=== PATIENT | female | born 1960 | race Caucasian/White ===

== ENCOUNTER 2018-05-31 07:16 | Emergency (ER) | payer OTHER ==
[2018-05-31] MEDS ORDERED: VITAMIN B-1 100 MG PO ONE (07:25)
--- NOTE | 2018-05-31 07:37 | ERPHSYRPT ---
- History of Present Illness Time Seen by Provider: 05/31/18 07:25 Source: patient, EMS Exam Limitations: no limitations Physician History: patient brought in by EMS after responding to a call from an upset patietn throwing things; on arrival found a depressed female upset over the passing of her of 27 years about a month ago; daughter was at scene but patietn lives alone, now depressed; not eating well- lost 15 pounds in past month; no pains; BMs wnl; voiding ok without symptoms;no ARZATE or CP other then from a broken heart; not sleeping well; denies suicidal or homicidal plans and or thoughts; no prior hx; no trouble breathing; has not sought medical help coping ; "doesn't want help coping"; denies any recent alcohol or drug use; no other complaints at this time. Cooperative but cries easily,. FSBS by EMS ok at 160; will order a 1800 linda ADA BF and recheck glucose after; she can't recall if she took her meds this am or not; will rquest Psyche consult from for follow up and check basic labs, monitor and recheck; accu check here before BF was 126; BP slightly elevated and not sure if took am meds; will monitor and recheck and give meds if still elevated Timing/Duration: today (uppset this am and acting out at home), week(s) (3-4 depressed over loss of ) Severity of Symptoms-Max: severe Severity of Symptoms-Current: moderate Context related to: spouse (loss of after 27 years), daughter (at house - upset) , recent (of spouse of 27 years) Associated Symptoms: depressed, No hallucinating, No ingestion, No injury, No paranoid, No suicidal ideation Previous symptoms: no prior history Allergies/Adverse Reactions: No Known Drug Allergies Allergy (Unverified 05/31/18 07:36) Home Medications: Atorvastatin Calcium 80 mg PO DAILY 05/31/18 [History] Clopidogrel Bisulfate [Clopidogrel] 75 mg PO DAILY 05/31/18 [History] Gabapentin 600 mg PO DAILY 05/31/18 [History] Insulin Degludec [Tresiba Flextouch U-100] 1 units IM DAILY 05/31/18 [History] Losartan Potassium 100 mg PO DAILY 05/31/18 [History] Nifedipine [Procardia Xl] 60 mg PO DAILY 05/31/18 [History] - Past Medical History Pertinent Past Medical History: Yes Cardiac History: Hypertension Endocrine Medical History: Diabetes Type I - Past Surgical History Gastrointestinal: Cholecystectomy Female Surgical History: Section (x3) - Social History Smoking Status: Current every day smoker (1ppd) Exposure to second hand smoke: No Alcohol Use: None Drug Use: none Patient Lives Alone: Yes Significant Family History: diabetes, hypertension - Female History Hx Now: No - Review of Systems Constitutional: Weight Loss (15#s over past month), No Fever, No Chills, No Night Sweats Eyes: No Symptoms Ears, Nose, & Throat: No Symptoms Respiratory: No Cough, No Dyspnea, No Wheezing Cardiac: No Chest Pain, No Edema, No Palpitations, No Syncope Abdominal/Gastrointestinal: No Abdominal Pain, No Nausea, No Vomiting, No Diarrhea, No Hematemesis, No Melena Genitourinary Symptoms: No Symptoms Musculoskeletal: No Symptoms Skin: No Symptoms Neurological: No Symptoms Psychological: Depression, Hallucinations (questionable saw her recently ( possible dream this am)), No Alcohol Abuse, No Drug Abuse, No Anxiety, No Suicidal Ideations, No Homicidal Ideations, No Memory Loss Endocrine: Cold Intolerance, No Polyuria, No Polydipsia, No Excessive Sweating, No Goiter Hematologic/Lymphatic: No Symptoms Immunological/Allergic: No Symptoms - Nursing Vital Signs Nursing Vital Signs: Initial Vital Signs Temperature 97.6 F 05/31/18 07:18 Pulse Rate 82 05/31/18 07:18 Respiratory Rate 18 05/31/18 07:18 Blood Pressure 152/100 05/31/18 07:18 O2 Sat by Pulse Oximetry 99 05/31/18 07:18 Pain Scale Pain Intensity 0 - Physical Exam General Appearance: mild distress, thin, other (depressed - cries easily ) Eyes, Ears, Nose, Throat Exam: normal ENT inspection, TMs normal, pharynx normal , moist mucous membranes Neck Exam: normal inspection, non-tender, supple, full range of motion, No meningismus, No JVD Respiratory Exam: normal breath sounds, lungs clear, airway intact, No chest tenderness, No respiratory distress, No crackles/rales, No rhonchi, No wheezing Cardiovascular Exam: regular rate/rhythm, normal heart sounds, normal peripheral pulses, capillary refill <2 sec, No murmur Gastrointestinal/Abdominal Exam: soft, normal bowel sounds, No tenderness, No guarding, No rebound, No organomegaly Extremities Exam: normal inspection, normal range of motion, No evidence of injury, No edema Peripheral Pulses: carotid (R): 4+, carotid (L): 4+, femoral (R): 4+, femoral (L ): 4+, dorsalis-pedis (R): 3+, dorsalis-pedis (L): 3+ Current Suicidality: denies suicide plan, No has suicide plan Neurological Exam: alert, calm, dispatch manager II-XII nml as tested, oriented x 3, No normal mood/affect (cries easily when discussing recent of her ) Appearance: appropriate appearance, appropriate insight, neat, no memory impairment, denies illness, No impaired insight, No impaired recent memory, No impaired remote memory Behavior/Eye Contact/Speech: alert & cooperative, cooperative, normal speech, No good eye contact Thoughts/Hallucinations: normal thought pattern, no apparent hallucination, No delusions, No flight of ideas, No paranoid Skin Exam: normal color, warm, dry, No rash, No petechiae, No cyanosis SpO2 Interpretation: normal SpO2: 99 Oxygen Delivery: Room Air - Course Nursing assessment & vital signs reviewed: Yes - Radiology Exams Chest X-ray Interpretation: Reviewed by me, Teleradiologist Report, Infiltrates (left basilar vs atelectasis) - CT Exams Head CT Interpretation: Tele-radiologist Report, Other (NAD; several areas of encephalomalacia - old) Ordered Tests: Active Orders 24 hr Category Date Time Status Accucheck STAT Care 05/31/18 07:25 Active Other ED Treatment STAT Care 05/31/18 07:29 Active Re-Check Vital Signs STAT Care 05/31/18 07:25 Active Psychiatric Consult STAT Cons 05/31/18 07:25 Active CHEST 1 VIEW (PORTABLE) Stat Exams 05/31/18 08:34 Completed HEAD WITHOUT CONTRAST [CT] Stat Exams 05/31/18 13:17 Completed ACETAMINOPHEN Stat Lab 05/31/18 07:45 Completed BLOOD CULTURE Stat Lab 05/31/18 09:17 Received CBC W DIFF Stat Lab 05/31/18 07:45 Completed CMP Stat Lab 05/31/18 07:45 Completed ETHYL ALCOHOL Stat Lab 05/31/18 07:45 Completed SALICYLATE Stat Lab 05/31/18 07:45 Completed UA W/RFX UR CULTURE Stat Lab 05/31/18 07:45 Completed Urine Triage Profile Stat Lab 05/31/18 07:45 Completed Medication Summary Generic Name Dose Route Start Last Admin Trade Name Taina PRN Reason Stop Dose Admin Sodium Chloride 1,000 mls @ 100 mls/hr 05/31/18 09:45 05/31/18 09:45 Sodium Chloride 0.9% 1000 Ml IV 06/30/18 09:44 100 mls/hr .Q10H MONIQUE Administration Discontinued Medications Generic Name Dose Route Start Last Admin Trade Name Taina PRN Reason Stop Dose Admin Hydrocodone Bitart/Acetaminophen 1 tab 05/31/18 08:21 05/31/18 08:34 Harper 5/325 Mg PO 05/31/18 08:22 1 tab STAT ONE Administration Hydrocodone Bitart/Acetaminophen Confirm 05/31/18 08:33 Harper 5/325 Mg Administered 05/31/18 08:34 Dose 1 tab .ROUTE .STK-MED ONE Ceftriaxone Sodium/Dextrose 1 g in 50 mls @ 100 mls/hr 05/31/18 09:31 10:23 Rocephin 1 Gm-D5w 50 Ml Bag IV 05/31/18 10:00 Infused STAT STA Infusion Ceftriaxone Sodium/Dextrose Confirm 05/31/18 09:44 Rocephin 1 Gm-D5w 50 Ml Bag Administered 05/31/18 09:45 Dose 1 g in 50 mls @ ud IV .STK-MED ONE Lorazepam 2 mg 05/31/18 12:11 05/31/18 12:18 Ativan 1 Mg PO 05/31/18 12:12 2 mg STAT ONE Administration Lorazepam Confirm 05/31/18 12:16 Ativan 1 Mg Administered 05/31/18 12:17 Dose 2 mg .ROUTE .STK-MED ONE Olanzapine 10 mg 05/31/18 13:19 05/31/18 13:23 Zyprexa Zydis 5 Mg PO 05/31/18 13:20 10 mg STAT ONE Administration Olanzapine Confirm 05/31/18 13:19 Zyprexa Zydis 5 Mg Administered 05/31/18 13:20 Dose 10 mg PO .STK-MED ONE Thiamine HCl 100 mg 05/31/18 07:25 05/31/18 08:02 Vitamin B-1 100 Mg PO 05/31/18 07:26 100 mg STAT ONE Administration Lab/Rad Data: Laboratory Result Diagrams 05/31/18 07:45 05/31/18 07:45 Laboratory Results 05/31/18 05/31/18 05/31/18 Range/Units 07:45 07:45 07:45 WBC (4.0-10.5) K/mm3 RBC (4.1-5.4) M/mm3 Hgb (12.0-16.0) gm/dl Hct (35-47) % MCV (78-100) fl MCH (26-32) pg MCHC (32-36) g/dl RDW (11.5-14.0) % Plt Count (150-450) K/mm3 MPV (6-9.5) fl Gran % (36.0-66.0) % Eos # (Auto) (0-0.5) Absolute Lymphs (auto) (1.0-4.6) Absolute Monos (auto) (0.0-1.3) Lymphocytes % (24.0-44.0) % Monocytes % (0.0-12.0) % Eosinophils % (0.00-5.0) % Basophils % (0.0-0.4) % Absolute Granulocytes (1.4-6.9) Basophils # (0-0.4) Sodium 137 (137-145) mmol/L Potassium 3.5 (3.5-5.1) mmol/L Chloride 101 (98-107) mmol/L Carbon Dioxide 28 (22-30) mmol/L Anion Gap 11.3 (5-15) MEQ/L BUN 10 (7-17) mg/dL Creatinine 0.60 (0.52-1.04) mg/dL Estimated GFR > 60.0 ML/MIN Glucose 133 H (74-106) mg/dL Calcium 8.9 (8.4-10.2) mg/dL Total Bilirubin 0.70 (0.2-1.3) mg/dL AST 21 (14-36) U/L ALT 14 (0-35) U/L Alkaline Phosphatase 211 H (38-126) U/L Serum Total Protein 6.4 (6.3-8.2) g/dL Albumin 3.6 (3.5-5.0) g/dL Urine Color YELLOW (YELLOW) Urine Appearance SLIGHTLY CLOUDY (CLEAR) Urine pH 5.0 (5-6) Ur Specific [place] 1.014 (1.005-1.025) Urine Protein NEGATIVE (Negative) Urine Ketones SMALL (NEGATIVE) Urine Blood NEGATIVE (0-5) Salas/ul Urine Nitrite NEGATIVE (NEGATIVE) Urine Bilirubin NEGATIVE (NEGATIVE) Urine Urobilinogen 2 (0-1) mg/dL Ur Leukocyte Esterase NEGATIVE (NEGATIVE) Urine WBC (Auto) 0-2 (0-5) /HPF Urine RBC (Auto) 3-5 (0-2) /HPF U Epithel Cells (Auto) RARE (FEW) /HPF Urine Bacteria (Auto) RARE (NEGATIVE) /HPF Urine Mucus (Auto) SLIGHT (NEGATIVE) /HPF Urine Culture Reflexed NO (NO) Urine Glucose 150 (NEGATIVE) mg/dL Salicylates < 1.0 L (2-20) mg/dL Urine Opiates Level POSITIVE (NEGATIVE) Ur Methadone NEGATIVE (NEGATIVE) Acetaminophen 14 (10-30) ug/ml Urine Barbiturates NEGATIVE (NEGATIVE) Ur Phencyclidine (PCP) NEGATIVE (NEGATIVE) Urine Amphetamine POSITIVE (NEGATIVE) U Benzodiazepine Level POSITIVE (NEGATIVE) Urine Cocaine NEGATIVE (NEGATIVE) Urine Marijuana (THC) NEGATIVE (NEGATIVE) Ethyl Alcohol < 10 (0-10) mg/dL 05/31/18 Range/Units 07:45 WBC 6.2 (4.0-10.5) K/mm3 RBC 4.66 (4.1-5.4) M/mm3 Hgb 14.2 (12.0-16.0) gm/dl Hct 41.6 (35-47) % MCV 89.3 (78-100) fl MCH 30.5 (26-32) pg MCHC 34.1 (32-36) g/dl RDW 14.0 (11.5-14.0) % Plt Count 242 (150-450) K/mm3 MPV 9.1 (6-9.5) fl Gran % 41.8 (36.0-66.0) % Eos # (Auto) 0.23 (0-0.5) Absolute Lymphs (auto) 2.84 (1.0-4.6) Absolute Monos (auto) 0.51 (0.0-1.3) Lymphocytes % 46.0 H (24.0-44.0) % Monocytes % 8.3 (0.0-12.0) % Eosinophils % 3.7 (0.00-5.0) % Basophils % 0.2 (0.0-0.4) % Absolute Granulocytes 2.59 (1.4-6.9) Basophils # 0.01 (0-0.4) Sodium (137-145) mmol/L Potassium (3.5-5.1) mmol/L Chloride (98-107) mmol/L Carbon Dioxide (22-30) mmol/L Anion Gap (5-15) MEQ/L BUN (7-17) mg/dL Creatinine (0.52-1.04) mg/dL Estimated GFR ML/MIN Glucose (74-106) mg/dL Calcium (8.4-10.2) mg/dL Total Bilirubin (0.2-1.3) mg/dL AST (14-36) U/L ALT (0-35) U/L Alkaline Phosphatase (38-126) U/L Serum Total Protein (6.3-8.2) g/dL Albumin (3.5-5.0) g/dL Urine Color (YELLOW) Urine Appearance (CLEAR) Urine pH (5-6) Ur Specific [place] (1.005-1.025) Urine Protein (Negative) Urine Ketones (NEGATIVE) Urine Blood (0-5) Salas/ul Urine Nitrite (NEGATIVE) Urine Bilirubin (NEGATIVE) Urine Urobilinogen (0-1) mg/dL Ur Leukocyte Esterase (NEGATIVE) Urine WBC (Auto) (0-5) /HPF Urine RBC (Auto) (0-2) /HPF U Epithel Cells (Auto) (FEW) /HPF Urine Bacteria (Auto) (NEGATIVE) /HPF Urine Mucus (Auto) (NEGATIVE) /HPF Urine Culture Reflexed (NO) Urine Glucose (NEGATIVE) mg/dL Salicylates (2-20) mg/dL Urine Opiates Level (NEGATIVE) Ur Methadone (NEGATIVE) Acetaminophen (10-30) ug/ml Urine Barbiturates (NEGATIVE) Ur Phencyclidine (PCP) (NEGATIVE) Urine Amphetamine (NEGATIVE) U Benzodiazepine Level (NEGATIVE) Urine Cocaine (NEGATIVE) Urine Marijuana (THC) (NEGATIVE) Ethyl Alcohol (0-10) mg/dL reviewed - Progress Progress: improved, re-examined (after respit) Progress Note: 05/31/18 07:51 will check basic labs; offer breakfast; monitor BP and recheck; get Psyche consult for follow up; FSBS here before BF was 126; will recheck after BF; labs pending 05/31/18 07:59 u/a shows slight cloudy; ph 5; yellow; sp gr 1.014; glu = 150; small ket; otherwise negative; CBC wnl; plt ok; patient ate part of BF and cooperative; BP still elevated - will give am meds and monitor and recheck; wants to smoke 05/31/18 08:22 patient complaining of low back pain- chronic condition; hasn't taken her Harper for back pain this am; will give her one; patient also now having visual hallucination - thinks her daughter is in the room, but won't talk to her and that upsets her. Some labs pending. Will monitor and Psyche consult pending. 05/31/18 08:35 now has a cough denied before; pleuritic CP on left when coughs- non-productive ; no hemoptosis or SOB; Sats are good; no travel; no exposures; will get CXR and recheck; gave a pain pill for pain with cough; chemogram ok with no ETOH; Salic or significant Acet present; 05/31/18 08:48 tox screen positive for benzo and Opiates which are prescibed; others neg except for Amphetamines which are being diluted; will continue to monitor 05/31/18 09:08 CXR showed atelectasis vs infiltrate LLL; will give dose of Rocephin IV and IV fluids, monitor and recheck; Breath sounds are good and normal; sats are good at 98% on RA; no leg pains or tenderness or Homans sign; Amphetamines positive and may be contributing to visual hallucinations; Psyche consult pending 05/31/18 09:45 HC notified of consult; patient getting IV fluids and dose of Rocephin 05/31/18 10:15 HC called adn will do an in face interview - pending 05/31/18 10:43 recheck and resting quietly; BP and VS wnl now; HC here to consult and with patient 05/31/18 11:15 HC consult will release to follow up with OP HC- they will set her up for a FU Appt.; results shared and instructions given 05/31/18 12:11 VS remain improved but patient getting anxious as can't smoke as much as she would like; awaiting written report from HC in follow up to oral; will medicate with Ativan 2.o mg and contact family to transport patient home. 05/31/18 14:12 resting quietly after meds and CT; results called to HC; awaiting their call as are now considering admission to Mental Health 05/31/18 16:16 HC called and will admit HC Suni Mishra - Dr Valderrama. transfer being arranged Discussed with Dr.: Other (Dr Valderrama will admit to [facility] and is accepting physician) Will see patient in: other Counseled pt/family regarding: lab results, diagnosis, need for follow-up, smoking cessation - Departure Time of Disposition: 16:17 Departure Disposition: Transfer (to [facility] as direct admit) Clinical Impression: Situational depression, Visual hallucinations Condition: Stable Critical Care Time: No Referrals: DOCTOR,NO FAMILY [Primary Care Provider] -
[2018-05-31 07:49] LABS: BASOPHIL % 0.2 % (0.0-0.4); Basophil (Absolute #) 0.01 (0-0.4); Eosinophil % 3.7 % (0.00-5.0); Eosinophil (Absolute #) 0.23 (0-0.5); Granulocyte Absolute (ANC) 2.59 (1.4-6.9); Granulocytes % 41.8 % (36.0-66.0); Hematocrit 41.6 % (35-47); Hemoglobin 14.2 gm/dl (12.0-16.0); Lymphocyte (Absolute #) 2.84 (1.0-4.6); Mean Cell Volume 89.3 fl (78-100); Mean Corpuscular Hemoglobin 30.5 pg (26-32); Mean Corpuscular Hgb Concent. 34.1 g/dl (32-36); Mean Platelet Volume 9.1 fl (6-9.5); Monocyte (Absolute #) 0.51 (0.0-1.3); Monocytes % 8.3 % (0.0-12.0); Platelet Count 242 K/mm3 (150-450); Red Blood Count 4.66 M/mm3 (4.1-5.4); White Blood Count 6.2 K/mm3 (4.0-10.5)
[2018-05-31 07:56] LABS: Appearance SLIGHTLY CLOUDY (CLEAR); Bilirubin NEGATIVE (NEGATIVE); Blood NEGATIVE Ery/ul (0-5); Glucose 150 mg/dL (NEGATIVE); Ketones SMALL (NEGATIVE); Leukocyte Esterase NEGATIVE (NEGATIVE); Nitrite NEGATIVE (NEGATIVE); Protein,Urine Dip NEGATIVE (Negative); Specific Gravity 1.014 (1.005-1.025); Urobilinogen 2 mg/dL (0-1)
[2018-05-31] MEDS ORDERED: NORCO 5/325 MG PO ONE (08:21)
[2018-05-31 08:25] LABS: ACETAMINOPHEN 14 ug/ml (10-30); ALBUMIN 3.6 g/dL (3.5-5.0); ALKALINE PHOSPHATASE 211 U/L (38-126); ANION GAP 11.3 MEQ/L (5-15); BLOOD UREA NITROGEN 10 mg/dL (7-17); CHLORIDE 101 mmol/L (98-107); Calcium 8.9 mg/dL (8.4-10.2); Carbon Dioxide 28 mmol/L (22-30); Glucose 133 mg/dL (74-106); Potassium 3.5 mmol/L (3.5-5.1); SGOT/AST 21 U/L (14-36); SGPT/ALT 14 U/L (0-35); SODIUM 137 mmol/L (137-145); Total Protein 6.4 g/dL (6.3-8.2)
[2018-05-31 08:29] LABS: ETHYL ALCOHOL < 10 mg/dL (0-10); SALICYLATE < 1.0 mg/dL (2-20)
[2018-05-31] MEDS ORDERED: NORCO 5/325 MG ONE (08:33)
[2018-05-31 08:34] LABS: Barbiturate,Urine NEGATIVE (NEGATIVE); Benzodiazepine,Urine POSITIVE (NEGATIVE); Cocaine,Urine NEGATIVE (NEGATIVE); Methadone,Urine NEGATIVE (NEGATIVE); Opiate,Urine POSITIVE (NEGATIVE); PCP,Urine NEGATIVE (NEGATIVE); THC,Urine NEGATIVE (NEGATIVE)
--- NOTE | 2018-05-31 08:59 | XRAY ---
Indication: Left chest pain. Comparison: None Portable chest hyperinflated with left base infiltrate versus atelectasis and right base calcified granuloma. Remaining heart and lungs unremarkable. Bony thorax intact with mild scoliosis. Upper abdomen demonstrates epigastric hyperdensities either ingested medication/food versus chronic pancreatitis calcifications. Impression: 1. Left base infiltrate/atelectasis. Correlate clinically. 2. Abdomen epigastric hyperdensities, either ingested medication/food versus chronic pancreatitis calcifications. 3. Evidence for old granulomatous disease.
[2018-05-31 09:07] LABS: Amphetamine,Urine POSITIVE (NEGATIVE)
[2018-05-31] MEDS ORDERED: ROCEPHIN 1 Gm-D5w 50 ml Bag** 1 G/50 ML IVPB IV STA (09:31)
[2018-05-31] MEDS ORDERED: ROCEPHIN 1 Gm-D5w 50 ml Bag** 1 G/50 ML IVPB IV ONE (09:44)
[2018-05-31] MEDS ORDERED: Sodium Chloride 0.9% 1000 ML 1,000 ML ONE (09:44)
[2018-05-31] MEDS ORDERED: Sodium Chloride 0.9% 1000 ML 1,000 ML IV SCH (09:45)
[2018-05-31] MEDS ORDERED: Ativan 1 MG PO ONE (12:11)
[2018-05-31] MEDS ORDERED: Ativan 1 MG ONE (12:16)
[2018-05-31] MEDS ORDERED: Zyprexa Zydis 5 MG PO ONE ×2 (13:19)
--- NOTE | 2018-05-31 14:01 | XRAY ---
Indication: Visual hallucinations. Confusion. Poor historian. Multiple contiguous axial images obtained through the head without contrast. Comparison: None Small 1.3 cm focus right occipital lobe encephalomalacia with parenchymal hypoattenuation presumed gliosis and also related asymmetric mild prominence of the right trigone. There is also adjacent midline occipital bony defect presumed iatrogenic. Additional 2 cm focal encephalomalacia with gliosis near the left vertex. Tiny anterior falx lipoma. No acute intracranial hemorrhage, mass effect or hydrocephalus. Fourth ventricle is midline. Remaining bony calvarium is intact. Visualized paranasal sinuses are essentially clear. Impression: 1. Small right occipital lobe encephalomalacia with probable gliosis presumed from old injury/insult. Findings could also be iatrogenic as there is adjacent midline occipital bony defect. Correlate clinically. 2. Additional left vertex focal encephalomalacia/gliosis from old injury/insult. 3. No acute intracranial abnormalities. CTDI 66.81
[2018-05-31 17:21] VITALS: O2SAT 98
[2018-05-31 18:34] VITALS: BP 139/83; PULSE 83
== END 2018-05-31 19:04 | disposition short-term general hospital (02) ==
LOC: ED 07:16
DX: F43.21 Adjustment disorder with depressed mood (principal); R44.1 Visual hallucinations; E10.9 Type 1 diabetes mellitus without complications; Z79.4 Long term (current) use of insulin; I10 Essential (primary) hypertension; Z79.899 Other long term (current) drug therapy; R05 Cough; M54.5 Low back pain; R07.9 Chest pain, unspecified
CPT/HCPCS: 36000; 36415; 70450; 71045; 80053; 80307; 81001; 82962; 85025; 87040; 90791; 96360; 96361; 96365; 96374; 99285; G0480; G0481; Q3014; 96375; J0696; A9270-GY

== ENCOUNTER 2019-07-11 15:16 | Emergency (ER) | payer MEDICAID, OTHER ==
--- NOTE | 2019-07-11 15:22 | ERPHSYRPT ---
- History of Present Illness Time Seen by Provider: 07/11/19 15:21 Source: patient, family Exam Limitations: no limitations Physician History: 59 y/o diabetic white female presents with 2 weeks of cough, weakness, and generalized body aches. pt also c/o bilat flank pain and dysuria. pt was placed on z pack without benefit last week. pt denies soa, denies cp and denies abd pain. Timing/Duration: week(s) (2) Cough Quality/Degree: mild Possible Cause: occasional episodes Modifying Factors: Improves With: coughing Associated Symptoms: cough, dizziness, muscle aches, No fever, No chest pain/ soreness Allergies/Adverse Reactions: No Known Drug Allergies Allergy (Unverified 05/31/18 07:36) Home Medications: Gabapentin 600 mg PO DAILY 05/31/18 [History] Losartan Potassium 100 mg PO DAILY 05/31/18 [History] Nifedipine [Procardia Xl] 60 mg PO DAILY 05/31/18 [History] Insulin Lispro [Admelog Solostar] 100 unit SQ DAILY 07/11/19 [History] Hx Tetanus, Diphtheria Vaccination/Date Given: No Hx Influenza Vaccination/Date Given: No Hx Pneumococcal Vaccination/Date Given: No - Review of Systems Constitutional: Weakness Eyes: No Symptoms Ears, Nose, & Throat: No Symptoms Respiratory: Cough Cardiac: No Symptoms Abdominal/Gastrointestinal: No Symptoms Genitourinary Symptoms: No Symptoms Musculoskeletal: Arthralgias, Myalgias Skin: No Symptoms Neurological: Dizziness Psychological: No Symptoms Endocrine: No Symptoms Hematologic/Lymphatic: No Symptoms Immunological/Allergic: No Symptoms All Other Systems: Reviewed and Negative - Past Medical History Pertinent Past Medical History: Yes Neurological History: No Pertinent History ENT History: No Pertinent History Cardiac History: Hypertension Respiratory History: No Pertinent History Endocrine Medical History: Diabetes Type I Musculoskeletal History: No Pertinent History GI Medical History: No Pertinent History History: No Pertinent History Psycho-Social History: No Pertinent History Female Reproductive Disorders: No Pertinent History - Past Surgical History Past Surgical History: Yes Gastrointestinal: Cholecystectomy Genitourinary: No Pertinent History Musculoskeletal: No Pertinent History Female Surgical History: Section (x3) Other Surgical History: rosalina. - Social History Smoking Status: Current every day smoker (1ppd) How long have you smoked: years Exposure to second hand smoke: No Alcohol Use: None Drug Use: none Patient Lives Alone: Yes Significant Family History: diabetes, hypertension - Nursing Vital Signs Nursing Vital Signs: Initial Vital Signs Temperature 98.3 F 07/11/19 15:28 Pulse Rate 88 07/11/19 15:28 Respiratory Rate 22 07/11/19 15:28 Blood Pressure 149/93 07/11/19 15:28 O2 Sat by Pulse Oximetry 97 07/11/19 15:28 Pain Scale Pain Intensity 2 - Physical Exam General Appearance: mild distress, alert, anxiety Eye Exam: PERRL/EOMI, eyes nml inspection Ears, Nose, Throat Exam: normal ENT inspection, moist mucous membranes Neck Exam: normal inspection, non-tender, supple, full range of motion Respiratory Exam: normal breath sounds, lungs clear, airway intact, No chest tenderness, No respiratory distress Cardiovascular Exam: regular rate/rhythm, normal heart sounds, normal peripheral pulses Gastrointestinal/Abdomen Exam: soft, normal bowel sounds, No tenderness, No guarding, No rebound Pelvic Exam: not done Rectal Exam: not done Back Exam: normal inspection, normal range of motion, No CVA tenderness, No vertebral tenderness Extremity Exam: normal inspection, normal range of motion, pelvis stable Neurologic Exam: alert, oriented x 3, cooperative, webbing seamer pound net II-XII nml as tested Skin Exam: normal color, warm, dry Lymphatic Exam: No adenopathy SpO2 Interpretation: normal O2 Delivery: Room Air - Course Nursing assessment & vital signs reviewed: Yes Ordered Tests: Active Orders 24 hr Category Date Time Status IV Insertion STAT Care 07/11/19 16:18 Active Pulse Oximetry (ED) STAT Care 07/11/19 16:18 Active CHEST 1 VIEW (PORTABLE) Stat Exams 07/11/19 16:20 Completed CBC W DIFF Stat Lab 07/11/19 17:00 Completed CMP Stat Lab 07/11/19 17:00 Completed CULTURE,URINE Stat Lab 07/11/19 17:34 Received Amador Screen Stat Lab 07/11/19 17:00 Completed UA W/RFX UR CULTURE Stat Lab 07/11/19 17:34 Completed Medication Summary Discontinued Medications Generic Name Dose Route Start Last Admin Trade Name Freq PRN Reason Stop Dose Admin Sodium Chloride 1,000 mls @ 999 mls/hr 07/11/19 16:18 07/11/19 17:40 Sodium Chloride 0.9% 1000 Ml IV 07/11/19 17:18 999 mls/hr .Q1H1M STA Administration Sodium Chloride Confirm 07/11/19 17:38 Sodium Chloride 0.9% 1000 Ml Administered 07/11/19 17:39 Dose 1,000 mls @ ud .ROUTE .STK-MED ONE Lab/Rad Data: Laboratory Result Diagrams 07/11/19 17:00 07/11/19 17:00 Laboratory Results 07/11/19 07/11/19 07/11/19 Range/Units 17:34 17:00 17:00 WBC (4.0-10.5) K/mm3 RBC (4.1-5.4) M/mm3 Hgb (12.0-16.0) gm/dl Hct (35-47) % MCV (78-100) fl MCH (26-32) pg MCHC (32-36) g/dl RDW (11.5-14.0) % Plt Count (150-450) K/mm3 MPV (7.5-11.0) fl Gran % (36.0-66.0) % Eos # (Auto) (0-0.5) Absolute Lymphs (auto) (1.0-4.6) Absolute Monos (auto) (0.0-1.3) Lymphocytes % (24.0-44.0) % Monocytes % (0.0-12.0) % Eosinophils % (0.00-5.0) % Basophils % (0.0-0.4) % Absolute Granulocytes (1.4-6.9) Basophils # (0-0.4) Sodium 140 (137-145) mmol/L Potassium 3.2 L (3.5-5.1) mmol/L Chloride 105 (98-107) mmol/L Carbon Dioxide 24 (22-30) mmol/L Anion Gap 13.7 (5-15) MEQ/L BUN 8 (7-17) mg/dL Creatinine 0.62 (0.52-1.04) mg/dL Estimated GFR > 60.0 ML/MIN Glucose 377 H (74-106) mg/dL Calcium 9.5 (8.4-10.2) mg/dL Total Bilirubin 0.60 (0.2-1.3) mg/dL AST 20 (14-36) U/L ALT 21 (0-35) U/L Alkaline Phosphatase 129 H (38-126) U/L Serum Total Protein 7.1 (6.3-8.2) g/dL Albumin 4.0 (3.5-5.0) g/dL Urine Color YELLOW (YELLOW) Urine Appearance SLIGHTLY CLOUDY (CLEAR) Urine pH 6.0 (5-6) Ur Specific [place] 1.010 (1.005-1.025) Urine Protein NEGATIVE (Negative) Urine Ketones TRACE (NEGATIVE) Urine Blood NEGATIVE (0-5) Salas/ul Urine Nitrite POSITIVE (NEGATIVE) Urine Bilirubin NEGATIVE (NEGATIVE) Urine Urobilinogen NEGATIVE (0-1) mg/dL Ur Leukocyte Esterase TRACE (NEGATIVE) Urine WBC (Auto) 26-50 (0-5) /HPF Urine RBC (Auto) NONE (0-2) /HPF U Epithel Cells (Auto) RARE (FEW) /HPF Urine Bacteria (Auto) RARE (NEGATIVE) /HPF Urine Culture Reflexed YES (NO) Urine Glucose >=500 (NEGATIVE) mg/dL Monoscreen NEGATIVE (Negative) Influenza Type A Ag (NEGATIVE) Influenza Type B Ag (NEGATIVE) RSV (PCR) (Negative) Group A Strep Antibody (NEGATIVE) 07/11/19 07/11/19 Range/Units 17:00 16:30 WBC 7.9 (4.0-10.5) K/mm3 RBC 4.72 (4.1-5.4) M/mm3 Hgb 14.1 (12.0-16.0) gm/dl Hct 41.8 (35-47) % MCV 88.6 (78-100) fl MCH 29.9 (26-32) pg MCHC 33.7 (32-36) g/dl RDW 13.4 (11.5-14.0) % Plt Count 124 L (150-450) K/mm3 MPV 11.5 H (7.5-11.0) fl Gran % 65.2 (36.0-66.0) % Eos # (Auto) 0.12 (0-0.5) Absolute Lymphs (auto) 2.23 (1.0-4.6) Absolute Monos (auto) 0.37 (0.0-1.3) Lymphocytes % 28.2 (24.0-44.0) % Monocytes % 4.7 (0.0-12.0) % Eosinophils % 1.5 (0.00-5.0) % Basophils % 0.4 (0.0-0.4) % Absolute Granulocytes 5.16 (1.4-6.9) Basophils # 0.03 (0-0.4) Sodium (137-145) mmol/L Potassium (3.5-5.1) mmol/L Chloride (98-107) mmol/L Carbon Dioxide (22-30) mmol/L Anion Gap (5-15) MEQ/L BUN (7-17) mg/dL Creatinine (0.52-1.04) mg/dL Estimated GFR ML/MIN Glucose (74-106) mg/dL Calcium (8.4-10.2) mg/dL Total Bilirubin (0.2-1.3) mg/dL AST (14-36) U/L ALT (0-35) U/L Alkaline Phosphatase (38-126) U/L Serum Total Protein (6.3-8.2) g/dL Albumin (3.5-5.0) g/dL Urine Color (YELLOW) Urine Appearance (CLEAR) Urine pH (5-6) Ur Specific [place] (1.005-1.025) Urine Protein (Negative) Urine Ketones (NEGATIVE) Urine Blood (0-5) Salas/ul Urine Nitrite (NEGATIVE) Urine Bilirubin (NEGATIVE) Urine Urobilinogen (0-1) mg/dL Ur Leukocyte Esterase (NEGATIVE) Urine WBC (Auto) (0-5) /HPF Urine RBC (Auto) (0-2) /HPF U Epithel Cells (Auto) (FEW) /HPF Urine Bacteria (Auto) (NEGATIVE) /HPF Urine Culture Reflexed (NO) Urine Glucose (NEGATIVE) mg/dL Monoscreen (Negative) Influenza Type A Ag NEGATIVE (NEGATIVE) Influenza Type B Ag NEGATIVE (NEGATIVE) RSV (PCR) NEGATIVE (Negative) Group A Strep Antibody NEGATIVE (NEGATIVE) - Progress Progress: improved Air Movement: good Progress Note: 07/11/19 18:14 This patient does not want to stay for the remainder of her work-up. Patient was informed she has a urinary tract infection and high blood sugar. She does not want intravenous fluids or intravenous antibiotics. Differential diagnoses in this patient is viral syndrome, urinary tract infection, dehydration, hyperglycemia Blood Culture(s) Obtained: No Antibiotics given: No Counseled pt/family regarding: lab results, diagnosis, need for follow-up - Departure Departure Disposition: Home Clinical Impression: UTI (urinary tract infection) Condition: Stable Critical Care Time: No Referrals: SAEID FLORES [Primary Care Provider] - Additional Instructions: Drink plenty of fluids. Monitor your blood sugar as prescribed by your primary doctor. Treat your high blood sugar according to your primary doctor. Follow- up with your primary care physician for persistent symptoms Prescriptions: Smz/Tmp Ds Tablet [Bactrim Ds Tablet] 1 udtab PO BID #14 tablet
[2019-07-11] MEDS ORDERED: Sodium Chloride 0.9% 1000 ML 1,000 ML IV STA (16:18)
--- NOTE | 2019-07-11 17:10 | XRAY ---
Indication: Cough. Flu symptoms. Comparison: May 31, 2018. Portable apical lordotic chest again demonstrates minimal left base fibrosis/scarring less than before. No focal infiltrate, consolidation, or large effusion. Heart is not enlarged. Descending aorta remains mildly tortuous. Bony thorax intact with mild osteopenia. Impression: Nonacute chest with chronic features.
[2019-07-11 17:25] LABS: INFLUENZA A NEGATIVE (NEGATIVE); INFLUENZA B NEGATIVE (NEGATIVE); RESPIRATORY SYNCTIAL VIRUS NEGATIVE (Negative)
[2019-07-11 17:29] LABS: Absolute Neutrophil Ct (ANC) 5.16 (1.4-6.9); BASOPHIL % 0.4 % (0.0-0.4); Basophil (Absolute #) 0.03 (0-0.4); Eosinophil % 1.5 % (0.00-5.0); Eosinophil (Absolute #) 0.12 (0-0.5); Hematocrit 41.8 % (35-47); Hemoglobin 14.1 gm/dl (12.0-16.0); Lymphocyte (Absolute #) 2.23 (1.0-4.6); Lymphocytes % 28.2 % (24.0-44.0); Mean Cell Volume 88.6 fl (78-100); Mean Corpuscular Hemoglobin 29.9 pg (26-32); Mean Corpuscular Hgb Concent. 33.7 g/dl (32-36); Mean Platelet Volume 11.5 fl (7.5-11.0); Monocyte (Absolute #) 0.37 (0.0-1.3); Monocytes % 4.7 % (0.0-12.0); Neutrophil % 65.2 % (36.0-66.0); Platelet Count 124 K/mm3 (150-450); Red Blood Count 4.72 M/mm3 (4.1-5.4); Red Cell Distribution Width 13.4 % (11.5-14.0); White Blood Count 7.9 K/mm3 (4.0-10.5)
[2019-07-11 17:32] LABS: ALKALINE PHOSPHATASE 129 U/L (38-126); ANION GAP 13.7 MEQ/L (5-15); BLOOD UREA NITROGEN 8 mg/dL (7-17); CHLORIDE 105 mmol/L (98-107); Calcium 9.5 mg/dL (8.4-10.2); Carbon Dioxide 24 mmol/L (22-30); Creatinine 1 0.62 mg/dL (0.52-1.04); Glucose 377 mg/dL (74-106); Potassium 3.2 mmol/L (3.5-5.1); SGOT/AST 20 U/L (14-36); SGPT/ALT 21 U/L (0-35); SODIUM 140 mmol/L (137-145); Total Protein 7.1 g/dL (6.3-8.2)
[2019-07-11] MEDS ORDERED: Sodium Chloride 0.9% 1000 ML 1,000 ML ONE (17:38)
[2019-07-11 17:54] LABS: Appearance SLIGHTLY CLOUDY (CLEAR); Bacteria RARE /HPF (NEGATIVE); Bilirubin NEGATIVE (NEGATIVE); Blood NEGATIVE Ery/ul (0-5); Epithelial Cells RARE /HPF (FEW); Glucose >=500 mg/dL (NEGATIVE); Ketones TRACE (NEGATIVE); Leukocyte Esterase TRACE (NEGATIVE); Nitrite POSITIVE (NEGATIVE); Protein,Urine Dip NEGATIVE (Negative); Urobilinogen NEGATIVE mg/dL (0-1); WBC 26-50 /HPF (0-5)
[2019-07-11 18:16] VITALS: BP 148/90; PULSE 88; O2SAT 98
== END 2019-07-11 18:52 | disposition home or self-care (01) ==
LOC: ED 15:16
DX: N39.0 Urinary tract infection, site not specified (principal); I10 Essential (primary) hypertension; E10.9 Type 1 diabetes mellitus without complications; Z79.4 Long term (current) use of insulin; Z79.899 Other long term (current) drug therapy
CPT/HCPCS: 36000; 36415; 71045; 80053; 81001; 85025; 86308; 87086; 87631; 87651; 94760; 96360; 99284